=== PATIENT | male | born 1965 | race Hispanic/Latino ===

== ENCOUNTER 2016-04-08 12:31 | Outpatient (CLI) | payer OTHER ==
--- NOTE | 2016-04-08 15:00 | Cat Scan Report ---
CT scan of head without contrast: History: Recurrent left-sided headache. Findings: Ventricles are normal in size and midline in location. No evidence of acute ischemia, hemorrhage or mass. No extra-axial fluid collection. Normal brainstem and cerebellum. Normal sinuses and mastoid air cells. Impression: Essentially negative CT scan of head.
== END 2016-04-08 12:32 | disposition home or self-care (01) ==
LOC: CT 12:31
PROVIDERS: ATTEND Internal Medicine
DX: R51 Headache (principal); R29.898 Other symptoms and signs involving the musculoskeletal system
CPT/HCPCS: 70450